=== PATIENT | male | born 1995 | race Caucasian/White ===

== ENCOUNTER 2020-08-22 22:44 | Emergency (ER) | payer OTHER ==
[~2020-08-22] VITALS: Ht 172.7 cm; Wt 61.2 kg
[2020-08-23] MEDS ORDERED: LACTULOSE20 GM/30 M PO (00:40)
[2020-08-23] MEDS ORDERED: CITRATE OF MAGNESIA 300ML BOTTLE PO ONE (01:00)
[2020-08-23] MEDS ORDERED: LACTULOSE SYRUP 20 GM/30 ML UDC PO ONE (01:00)
[2020-08-23] MEDS ORDERED: CITRATE OF MAGNESIA 300ML BOTTLE ONE (01:03)
[2020-08-23] MEDS ORDERED: LACTULOSE SYRUP 20 GM/30 ML UDC ONE (01:03)
== END 2020-08-23 | disposition home or self-care (01) ==
LOC: ER 08-23 00:40
DX: K59.00 Constipation, unspecified (principal); R10.12 Left upper quadrant pain; R10.32 Left lower quadrant pain; F41.9 Anxiety disorder, unspecified; F32.9 Major depressive disorder, single episode, unspecified
CPT/HCPCS: 99281